=== PATIENT | female | born 2000 ===

== ENCOUNTER 2022-06-18 13:30 | Outpatient (RCR) | payer BC, SELFPAY ==
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
[2022-06-02 12:08] VITALS: BP 110/62; PULSE 80; TEMP 36.8
[2022-06-02 12:26] VITALS: BMI 47.1
--- NOTE | 2022-06-02 14:42 | PC.ADMIT ---
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 She was referred to PHP by her therapist d/t increased sxs of depression with passive SI, denied plan or intent to kill herself, and increased anxiety. Patient reported difficulty getting out of bed and struggles with anger with others in her life and negative self talk. Patient is currently staying in her off campus apartment with her dog as her roommates went home for winter break. She stated she did not want to go home as she has issues with her mother. She reports her mother is coming to stay with her next week to help support her as patient stated her mother is supportive. Patient is using marijuana to cope with how she is feeling using daily throughout the day. Patient also using ETOH mostly on the weekends drinking 10 shots of vodka in mixed drinks. Does not feel this is an issue for her at this time. Patient is alert and oriented x4. Calm and cooperative. Presented with depressed mood and affect. Patient given a copy of her safety plan if needed. Medications reconciled with patient and patient's phamracy. Patient stopped taking her presription Ritalin and Lexapro months ago. Medication education provided. Magdalena Coker CNP started patient on new medication Clonidine and Duloxetine.
[2022-06-02 15:25] LABS: Amphetamine Screen Urine Not Detected (Not Detect); Barbiturates, Urine Not Detected (Not Detect); Benzodiazepines Screen Urine Not Detected (Not Detect); Cannabinoid Screen Urine POSITIVE (Not Detect); Cocaine Screen Urine Not Detected (Not Detect); Fentanyl, urine Not Detected (Not Detect); Opiate Screen Urine Not Detected (Not Detect); Phencyclidine Screen Urine Not Detected (Not Detect)
--- NOTE | 2022-06-05 08:48 | PC.NURSE ---
Patient called staff and stated she was too drowsy to come to the program today. I spoke to Sharmin and she stated the same thing happened when she started Lexapro. Stated she was having some nausea. Reviewed with Magdalena Coker CNP. Per Magdalena patient is to cut Clonidine in half and not take in the morning. Sharmin is aware.
--- NOTE | 2022-06-06 11:41 | PC.NURSE ---
Patient stated she is feeling, fatigued and drained . BP 122/86 P 80. Stated she is going to try and eat and she how she feels afterwards.
[2022-06-06 11:42] VITALS: BP 122/86; PULSE 80; TEMP 37
--- NOTE | 2022-06-09 12:00 | HO.PHPPROGNO ---
Subjective Subjective Date of Service: 06/09/22 Reason For Visit: PTSD,depression,anxiety Medical Problems Affecting Mental Status: No Interim History: Describes mood as anxious. Reports continuing PTSD symptoms. Was concerned about driving in today, but was able to do it without problems. Went to a friend's father's [employer] service over weekend, which caused her stress and anxiety. Has begun using CBD over the weekends, as has greatly reduced cannabis use. No SI, no safety concerns. Was feeling overly sedated with clonidine 0.1, has begun using 0.05 with positive effect. Medication Compliance: Yes Side effects from medications: Yes (Found 0.1 mg clonidine to sedating, has begun to use half tab.) Attending Groups: Yes Review of Systems Acute medical concerns: No Medical Review of Systems: unchanged Review of Systems Review of Systems Yes all other systems are reviewed and are negative Constitutional: Reports no additional constitutional complaints Mental Status Exam Mental Status Exam Narrative: NAD Patient Appearance: Well Grooomed and Appropriate Patient Orientation: Person, Place, Time and Situation Level of Consciousness: Appropriate Patient Behavior: Appropriate Mood Description: Anxious Affect Description: Anxious Patient Cognition Impaired: No Ability to Follow Directions: Good Speech Pattern: Clear Memory Description: Intact Hallucinations: None Delusions: Not Present Perceptual Disturbances: Depersonalization Thought Process: Intact Thought Content: positive for Intact Depressive Symptoms: Increased Anxiety, Increased Irritability and Changes in Appetite (Continues to struggle with appetite. No bingeing of food.) Judgement: Fair Diagnostics Vital Signs (24Hr): BMI result Body Mass Index 47.1 Assessment & Plan Assessment & Plan (1) Depression, major, severe recurrence: Status: Acute Code(s): F33.2 - Major depressive disorder, recurrent severe without psychotic features Assessment and Plan: Reports feeling anxious today, increased PTSD symptoms. Had several triggers over weekend, including attending a father's of her friends [employer] service. Found this triggering, memories of her own father. No SI, no safety concerns. Has reduced cannabis use significantly. Drink 1 time over past week, 1 drink. Finding clonidine helpful, as well as duloxetine. Overall feels depression is improving. Finding program helpful. (2) Complex posttraumatic stress disorder: Status: Acute Code(s): F43.10 - Post-traumatic stress disorder, unspecified (3) Cannabis dependence, uncomplicated: Status: Acute Code(s): F12.20 - Cannabis dependence, uncomplicated Plan 1. Continue with current [facility] plan of care. 2. Continue with current medication regimen. 3. Follow-up as per protocol. Patient educated on: diagnosis, medication risk/benefits, substance abuse and therapeutic strategies Informed Consent: understands Reason for contiued partial hosp. stay Substantial Risk for: inability to function and rapid decompensation Certification I certify that partial hospital treatment is medically necessary due to the symptoms and problems resulting from the patient's mental illness and the failure to treat the patient at the partial hospital level of care would likely result in the patient requiring inpatient psychiatric care which could not be prevented at a less intensive level of care. Total time managing care of this patient today __20__ minutes. Discharge Plan Discharge Attending provider: García Ocasio Medications: New clonidine HCl 0.1 mg tablet 0.1 mg PO BID PRN (Reason: anxiety) Qty: 28 0RF Rx Instructions: Hold if blood pressure below 90/60. duloxetine 40 mg capsule,delayed release(DR/EC) 40 mg PO DAILY Qty: 14 0RF Stand Alone Forms: Patient Portal Discharge page Patient Education: Clonidine (By mouth), Duloxetine (By mouth)
--- NOTE | 2022-06-09 15:45 | HO.PHPIOP ---
I spoke with the clients therapist Demetrio Pennington PHD re the clients progress in group and need for a prescriber. We agreed I will look for a prescriber and will call Demetrio back toward the end of the clients treatment
--- NOTE | 2022-06-10 08:22 | HO.PHPIOP ---
The clients case was opened in tx team. He case and treatment goals were reviewed.
--- NOTE | 2022-06-11 13:45 | HO.PHPIOP ---
The client called out sick
--- NOTE | 2022-06-18 10:19 | P.PNPSP_ITS ---
Subjective Subjective Date of Service: 06/18/22 Reason For Visit: PTSD,depression,anxiety Medical Problems Affecting Mental Status: No Interim History: Overall improve mood, some anxiety. No SI, feels safe. Utilizing 1/2 clonidine at night, with positive effect. Taking duloxetine as prescribed, reports it is helping manage depression sx. Decreased alcohol consumption, decreased cannabis consumption. Feels stable for discharge from [facility] at this time. Returns to classes full-time next week at [employer]. Medication Compliance: Yes Side effects from medications: No Attending Groups: Yes Review of Systems Acute medical concerns: No Medical Review of Systems: unchanged Review of Systems Review of Systems Yes all other systems are reviewed and are negative Constitutional: Reports no additional constitutional complaints Mental Status Exam Mental Status Exam Narrative: NAD Patient Appearance: Well Grooomed and Appropriate Patient Orientation: Person, Place, Time and Situation Level of Consciousness: Appropriate Patient Behavior: Appropriate Mood Description: Anxious Affect Description: Appropriate Patient Cognition Impaired: No Ability to Follow Directions: Excellent Speech Pattern: Clear Memory Description: Intact Hallucinations: None Delusions: Not Present Perceptual Disturbances: Depersonalization Thought Process: Intact Thought Content: positive for Intact Judgement: Good Diagnostics Vital Signs (24Hr): BMI result Body Mass Index 47.1 Assessment & Plan Assessment & Plan (1) Depression, major, severe recurrence: Status: Acute Code(s): F33.2 - Major depressive disorder, recurrent severe without psychotic features Assessment and Plan: Overall improved mood, some anxiety. No SI, feels safe. Utilizing 1/2 clonidine at night, with positive effect. Taking duloxetine as prescribed, reports it is helping manage depression sx. Decreased alcohol consumption, decreased cannabis consumption. No concerns with current use. Harm reduction discussion. Feels stable for discharge from [facility] at this time. (2) Complex posttraumatic stress disorder: Status: Acute Code(s): F43.10 - Post-traumatic stress disorder, unspecified (3) Attention-deficit hyperactivity disorder, unspecified type: Status: Acute Code(s): F90.9 - Attention-deficit hyperactivity disorder, unspecified type (4) Cannabis dependence, uncomplicated: Status: Acute Code(s): F12.20 - Cannabis dependence, uncomplicated (5) Alcohol dependence, binge pattern: Status: Acute Code(s): F10.20 - Alcohol dependence, uncomplicated Plan 1. Patient appears stable for discharge from [facility] at this time. 2. Patient to follow-up with outpatient providers going forward. Patient educated on: diagnosis, medication risk/benefits, substance abuse and therapeutic strategies Informed Consent: understands Reason for contiued partial hosp. stay Substantial Risk for: stable for discharge Certification I certify that partial hospital treatment is medically necessary due to the symptoms and problems resulting from the patient's mental illness and the failure to treat the patient at the partial hospital level of care would likely result in the patient requiring inpatient psychiatric care which could not be prevented at a less intensive level of care. Total time managing care of this patient today __20__ minutes. Discharge Plan Discharge Attending provider: García Ocasio Medications: New clonidine HCl 0.1 mg tablet 0.1 mg PO BID PRN (Reason: anxiety) Qty: 28 0RF Rx Instructions: Hold if blood pressure below 90/60. duloxetine 40 mg capsule,delayed release(DR/EC) 40 mg PO DAILY Qty: 30 0RF Stand Alone Forms: Patient Portal Discharge page Patient Education: Clonidine (By mouth), Duloxetine (By mouth), Depression (DC)
== END 2022-06-18 23:59 | disposition home or self-care (01) ==
LOC: HO.PHPA 13:30
PROVIDERS: Visit Provider Psychiatry & Neurology Psychiatry
DX: F33.2 Major depressive disorder, recurrent severe without psychotic features (principal); F43.10 Post-traumatic stress disorder, unspecified; F90.9 Attention-deficit hyperactivity disorder, unspecified type; F12.20 Cannabis dependence, uncomplicated; F10.20 Alcohol dependence, uncomplicated
CPT/HCPCS: 80307; 90791; 90853